=== PATIENT | female | born 1955 | race Caucasian/White ===

== ENCOUNTER 2024-02-29 16:02 | Emergency (ER) | payer MEDICARE, OTHER, SELFPAY ==
[2024-02-29 16:07] VITALS: BP 192/112
[2024-02-29 16:38] LABS: % Basophils 1.2 % (0-2); % Eosinophils 1.9 % (0-6); % Immature Granulocytes 0.3 % (0-0.5); % Lymphocytes 27.9 % (20.5-51.1); % Monocytes 8.1 % (1.7-9.3); % Neutrophils 60.6 % (42.2-75.2); Absolute Basophils 0.1 10^3/uL (0-0.2); Absolute Eosinophils 0.2 10^3/uL (0-0.7); Absolute Monocytes 0.9 10^3/uL (0.1-0.6); Absolute Neutrophils 6.5 10^3/uL (1.4-6.5); Hematocrit 43.7 % (37.0-47.0); Mean Corp Hgb Conc. 36.6 g/dL (33.0-37.0); Mean Corpuscular Hgb 32.7 pg (27.0-31.0); Mean Corpuscular Volume 89.4 fL (81.0-99.0); Mean Platelet Volume 9.3 fL (7.4-10.4); Nucleated Red Blood Cells % 0 %; Platelet Count 325 10^3/uL (130-400); Red Blood Cell Count 4.89 10^6/uL (4.20-5.40); Red Cell Dist. Width 12.1 % (11.5-14.5); White Blood Cell Count 10.7 10^3/uL (4.8-10.8)
[2024-02-29 16:57] LABS: ALT (SGPT) 42 U/L (0-35); AST (SGOT) 46 U/L (14-36); Albumin 5.3 g/dl (3.5-5.0); Alkaline Phosphatase 46 U/L (38-126); Blood Urea Nitrogen 23 mg/dl (7-17); Calcium 11.1 mg/dl (8.4-10.2); Carbon Dioxide 28 mmol/L (22-30); Chloride 90 mmol/L (98-107); Glucose 146 mg/dl (70-99); Potassium 3.5 mmol/L (3.5-5.1); Sodium 131 mmol/L (135-145); Total Bilirubin 1.2 mg/dl (0.2-1.3); Total Protein 8.4 g/dl (6.3-8.2); eGFR > 60.00
[2024-02-29 17:03] LABS: Troponin I < 0.012 ng/ml
[2024-02-29 19:37] VITALS: BP 158/80
--- NOTE | 2024-02-29 19:45 | ED.GENMED ---
History of Present Illness
General
Chief Complaint: Dizziness
Source: patient
Exam Limitations: none
Time Seen by Provider: 02/29/24 19:32
Nursing documentation reviewed up to this point in time: agreed with
Travel History
Have you had any contact with someone who has COVID-19?: No
Do you have any symptoms of coronavirus? Fever > 100 degrees, chills, cough, shortness of breath, sore throat, loss of taste or smell, muscle aches, or headache?: No
History of Present Illness
History of Present Illness:
68-year-old female presents emerged from complaining of dizziness, headache and elevated blood pressure since Thursday. She was started on amlodipine last week, and takes losartan 25 mg daily. He does not feel dizzy or headache at this time. When
she does she feels a frontal headache that is intermittent.
Past History
Past History
ED Past Medical History: HTN, Hypercholesterolemia and NIDDM
ED Past Surgical History: None
Social History
Tobacco: Non-smoker
Alcohol: Occasional
Drug: None
Personal:
Living: with family
Review of Systems
Review of Systems
Allergies reviewed?: Yes
All Other Systems: Not applicable
Constitutional: Reports no symptoms
EENT: Reports no symptoms
Respiratory: Reports no symptoms
Cardiac: Reports no symptoms
ABD/GI: Reports no symptoms
: Reports no symptoms
Musculoskeletal: Reports no symptoms
Skin: Reports no symptoms
Neurological: Reports dizzy and headache
Endocrine: Reports no symptoms
Hematologic/Lymphatic: Reports no symptoms
Psychiatric: Reports no symptoms
Phy Exam
Physical Exam
Physical Exam:
Physical Exam
General: no apparent distress, not acutely ill, blood pressure 158/80
Neck: supple. no meningeal signs. normal posterior pharynx
Heart: s1/s2 regular rate and rhythm, no murmur. equal radial
pulses.
HEENT: Pupils equal round reactive to light, EOMI
Lungs: no acute respiratory distress. clear bilaterally
Abdomen: normal bowel sounds. not tender. no CVAT
Neuro: alert and oriented. no focal neurological deficits cranial nerves II through XII intact
Skin: no rash
Psychiatric: well kept. interactive and cooperative
Extremities: no edema. no calf tenderness. negative homans. good distal pulses
Course
Orders/Labs/Results
Orders:
Orders
02/29/24 16:09
Electrocardiogram (*1) Urgent
Reason for Study: Hypertension, Benign
EKG- Treatment ONCE
02/29/24 16:17
Complete Blood Count/With Diff Urgent
Comprehensive Metabolic Panel Urgent
Troponin I Urgent
02/29/24 19:44
CT Head W/o Iv Contrast Urgent
Comment:
Reason For Exam: headache, dizzy, eleveated bp 3 days
Abnormal Lab Results
02/29/24
16:17
MCH 32.7 H pg
(27.0-31.0)
Absolute Monos (auto) 0.9 H 10^3/uL
(0.1-0.6)
Sodium 131 L mmol/L
(135-145)
Chloride 90 L mmol/L
(98-107)
BUN 23 H mg/dl
(7-17)
Glucose 146 H mg/dl
(70-99)
Calcium 11.1 H mg/dl
(8.4-10.2)
AST 46 H U/L
(14-36)
ALT 42 H U/L
(0-35)
Total Protein 8.4 H g/dl
(6.3-8.2)
Albumin 5.3 H g/dl
(3.5-5.0)
04/22/24 16:17
02/29/24 16:17
Vital Signs
Initial and Last Documented VS:
Initial Vital Signs
Temp Pulse Resp BP Pulse Ox
98.0 F 104 18 192/112 98
02/29/24 16:07 02/29/24 16:07 02/29/24 16:07 02/29/24 16:07 02/29/24 16:07
Last Documented Vital Signs
Temp Pulse Resp BP Pulse Ox
98.0 F 69 13 154/89 96
02/29/24 16:07 02/29/24 21:00 02/29/24 21:00 02/29/24 21:00 02/29/24 20:45
MDM/Problems Addressed
Differential Diagnosis Includes:
cva, tia, hypertensive urgency
MDM/Problems Addressed:
68-year-old female with dizziness and hypertension, unclear etiology. No signs of CVA. Stable for discharge.
Chronic conditions affecting care: HTN
Acute Exacerbation and/or Progression of Chronic Illness: HTN
*Radiology
Radiology exam reviewed: radiology read reviewed (CT head no acute finding)
*Pulse Oximetry
Patient hypoxic: no
*EKG
Interpreted by ED Provider?: Yes
EKG Intrepretation Date: 02/29/24
EKG Intrepretation Time: 16:13
Interpretation: abnormal
Comparison EKG: changes noted
Heart Rate: 88
Rate: normal
Rhythm: sinus and PAC's
[place]: left axis deviation
Interval: normal interval
QRS Pattern: normal QRS
Ischemia: T-wave inversion
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
Rate: normal
Interpretation: normal
Heart Rate: 70
Rhythm: sinus
*Critical Care Note
Total Time (30-74mins, 75-104mins- exclusive of procedures): Not Applicable
Patient Management
Social determinants of health affecting care: Strong social support
Escalation/DeEscalation of care consider admission/obs:
Admit not indicated
ED Attending Note
-
Portions of this chart may have been created with voice recognition software.� Occasional wrong word or��sound alike� substitutions may have occurred due to the inherent limitations of voice recognition software.
Discharge Plan
Departure
Patient Disposition: Home (Routine Discharge)
Date of Disposition: 02/29/24
Time of Disposition: 21:46
Patient with high blood pressure during this ER visit?: Yes
Condition: Good
Discharge Problem:
Dizziness
Instructions: BLOOD PRESSURE, Dizziness
Prescriptions:
No Action
metformin 500 mg Tablet
500 mg PO QPM
atorvastatin 20 mg Tablet
20 mg PO QPM
famotidine 40 mg Tablet
40 mg PO QPM
amlodipine 2.5 mg Tablet
2.5 mg PO DAILY
niacin 500 mg Tablet
500 mg PO DAILY
gabapentin 300 mg Capsule
300 mg PO QPM
omeprazole 20 mg Capsule,Delayed Release(Dr/Ec)
20 mg PO DAILY
losartan 100 mg Tablet
100 mg PO QPM
apple cider vinegar 500 mg Tablet
500 mg PO DAILY
Patient Comments:
02/29/2024, kumarmy.
cholecalciferol (vitamin D3) 125 mcg (5,000 unit) Tablet
125 mcg PO DAILY
icosapent ethyl [Vascepa] 1 gram Capsule
2 g PO BID
turmeric root extract 500 mg Tablet
500 mg PO DAILY
Cinnamon 1,200 mg capsule
2,400 mg PO DAILY
Collagen Peptide Powder
2 tsp PO DAILY
Vitamin C + Zinc Liquid
1 dose PO DAILYPRN PRN (Reason: supplement)
chlorthalidone 25 mg Tablet
25 mg PO DAILY
acetaminophen [Tylenol 8 Hour] 650 mg Tablet Extended Release
1,300 mg PO Q8H PRN (Reason: mild pain)
Referrals:
Melissa Weeks MD [Family Provider] -
Interventions
Interventions:
*Risk Screen - Suicide Last Done: 02/29/24 16:07
*General Assessment Last Done: 02/29/24 16:07
*Neglect/Abuse Screening Last Done: 02/29/24 16:07
*ED COVID-19 Vaccine History Last Done: 02/29/24 16:07
ED- Neurological Assessment Last Done: 02/29/24 19:39
Discharge Date and Time
Print Language: YI
[2024-02-29 20:00] VITALS: BP 155/96
[2024-02-29 21:00] VITALS: BP 154/89
[2024-02-29 22:00] VITALS: BP 170/87
== END 2024-02-29 22:01 | disposition home or self-care (01) ==
LOC: EMR 16:02
PROVIDERS: Student in an Organized Health Care Education/Training Program; EMERGENCY PHYSICIAN Emergency Medicine; FAMILY PHYSICIAN Internal Medicine
DX: R42 Dizziness and giddiness (principal); R51.9 Headache, unspecified; I10 Essential (primary) hypertension; E78.00 Pure hypercholesterolemia, unspecified; E11.9 Type 2 diabetes mellitus without complications; Z79.899 Other long term (current) drug therapy
CPT/HCPCS: 99284; 70450; 80053; 84484; 85025; 93005

== ENCOUNTER → 2024-12-30 13:40 | Outpatient (REF) | payer MEDICARE, OTHER, SELFPAY | LOC: HWRAD 13:40 | PROVIDERS: ATTENDING PHYSICIAN Family Medicine | DX: Z12.31 Encounter for screening mammogram for malignant neoplasm of breast (principal); Z13.820 Encounter for screening for osteoporosis; Z78.0 Asymptomatic menopausal state | CPT/HCPCS: 77080 ==